=== PATIENT | female | born 1995 | race Caucasian/White ===

== ENCOUNTER 2016-12-25 11:31 | Emergency (ER) | payer SELFPAY ==
[~2016-12-25] VITALS: Ht 167.6 cm; Wt 74.4 kg
[~2016-12-25 11:31] MED LIST: BACTRIM DS 8001 TA1 PO; BENTYL10 MG PO; BIRTH CONTROL1 EAC1 PO; CEFUROXIME AXE250 MG PO; DEPO PROVER150 MG/M1 IM; FLONASE ALLERG9.9 ML NAS; KEFLEX500 MG PO; KENALOG0.1% TP; MACROBID100 M1 PO; MIRALAX POWDER17 G1 PO; MUCINEX DM 60 M1 TER PO; PHENERGAN W/DM120 ML PO; PREDNICOT10 MG PO; PROAIR HFA0.09 MG/AC INH; PROVENTIL0.09 MG/A1 INH; PYRIDIUM100 MG PO; PYRIDIUM200 MG PO; VIBRAMYCIN100 MG PO; ZANTAC 150150 MG PO; ZOFRAN ODT4 MG SL
[2016-12-25 12:04] LABS: BASO # 0.1 10*3/uL (0.0-0.1); BASO % 0.8 % (0.0-1.0); EOS # 0.1 10*3/uL (0.0-0.4); EOS % 1.3 % (1.0-4.0); HEMATOCRIT 40.6 % (37.0-47.0); HEMOGLOBIN 13.8 g/dl (12.0-16.0); LYMPH # 2.1 10*3/uL (1.3-4.4); LYMPH % 27.8 % (27.0-41.0); MEAN CELL VOLUME 89.6 fl (81.0-99.0); MEAN CORPUSCULAR HGB 30.5 pg (27.0-31.0); MONO # 0.4 10*3/uL (0.1-1.0); MONO % 5.2 % (3.0-9.0); NEUT # 4.8 10*3/uL (2.3-7.9); NEUT % 64.6 % (47.0-73.0); PLATELET COUNT AUTOMATED 195 10*3/uL (130-400); RED BLOOD COUNT 4.53 10*6/uL (4.10-5.10); WHITE BLOOD COUNT 7.5 10*3/uL (4.8-10.8)
[2016-12-25 12:14] LABS: PROTHROMBIN TIME 10.4 SECONDS (9.0-12.4)
[2016-12-25 12:21] LABS: ALBUMIN 3.6 gm/dl (3.1-4.5); ALKALINE PHOSPHATASE 52 U/L (45-117); BILIRUBIN, TOTAL 1.3 mg/dl (0.2-1.0); BUN 15 mg/dl (7-24); CARBON DIOXIDE 24 mmol/L (21-32); CHLORIDE 109 mmol/L (98-107); CPK 38 U/L (26-192); EST GLOM FILT AFRICAN AMERICAN > 60 ml/min; GLUCOSE 84 mg/dL (65-99); MAGNESIUM 2.2 mg/dL (1.5-2.1); SGOT/AST 21 IU/L (3-35); SGPT/ALT 47 U/L (12-78); SODIUM 141 mmol/L (136-145); TOTAL PROTEIN 7.2 gm/dL (6.4-8.2)
[2016-12-25 12:22] LABS: C-REACTIVE PROTEIN < 0.29 MG/DL (0-0.3); CKMB < 0.5 ng/ml (0.5-3.6); TROPONIN I < 0.015 ng/ml (<0.045)
[2016-12-25 13:21] LABS: BILIRUBIN NEGATIVE (NEGATIVE); BLOOD 1+ (NEGATIVE); CLARITY CLOUDY (CLEAR); COLOR YELLOW (YELLOW); GLUCOSE NEGATIVE (NEGATIVE); KETONE NEGATIVE (NEGATIVE); LEUKO ESTERASE 3+ (NEGATIVE); NITRITE NEGATIVE (NEGATIVE); PROTEIN TRACE (NEGATIVE); UROBILINOGEN 0.2 E.U./dl (0.2-1.0)
[2016-12-25 13:40] LABS: URINE AMPHETAMINES < 1000 (1000ng/ml); URINE BARBITURATES < 200 (200ng/ml); URINE COCAINE < 300 (300ng/ml)
[2016-12-25 13:48] LABS: BACTERIA 3+; URINE REFLEX COMMENT YES (NO); WBC TNTC wbc/hpf (0-5)
== END 2016-12-26 08:37 | disposition home health service (06) ==
LOC: ED 11:31
PROVIDERS: Emergency Medicine; Physician Assistant
DX: S30.860A Insect bite (nonvenomous) of lower back and pelvis, initial encounter (principal); R45.851 Suicidal ideations; N30.01 Acute cystitis with hematuria; F32.9 Major depressive disorder, single episode, unspecified; F41.9 Anxiety disorder, unspecified; Z88.1 Allergy status to other antibiotic agents; Z88.2 Allergy status to sulfonamides; W57.XXXA Bitten or stung by nonvenomous insect and other nonvenomous arthropods, initial encounter; Y93.89 Activity, other specified; Y92.9 Unspecified place or not applicable; Y99.9 Unspecified external cause status

== ENCOUNTER 2017-04-14 18:45 | Emergency (ER) | payer SELFPAY ==
[~2017-04-14] VITALS: Ht 170.1 cm; Wt 77.6 kg
== END 2017-04-14 20:36 | disposition home or self-care (01) ==
LOC: ED 18:45
DX: B07.0 Plantar wart (principal); F17.200 Nicotine dependence, unspecified, uncomplicated; Z88.1 Allergy status to other antibiotic agents; Z88.2 Allergy status to sulfonamides

== ENCOUNTER → 2017-05-21 | Outpatient (CLI) | payer SELFPAY | END | disposition home or self-care (01) | LOC: RESCLI 01:23 | DX: Z11.1 Encounter for screening for respiratory tuberculosis (principal); F32.9 Major depressive disorder, single episode, unspecified; F43.10 Post-traumatic stress disorder, unspecified; Z72.0 Tobacco use; Z71.6 Tobacco abuse counseling ==

== ENCOUNTER → 2017-06-16 | Outpatient (CLI) | payer SELFPAY | END | disposition home or self-care (01) | LOC: RESCLI 03:38 | DX: F32.9 Major depressive disorder, single episode, unspecified (principal); F43.10 Post-traumatic stress disorder, unspecified; Z72.0 Tobacco use; Z71.6 Tobacco abuse counseling; Z88.1 Allergy status to other antibiotic agents; Z88.2 Allergy status to sulfonamides ==

== ENCOUNTER 2017-06-22 12:49 | Emergency (ER) | payer SELFPAY | END 2017-06-22 13:17 | disposition home or self-care (01) | LOC: ED 12:49 | DX: M26.621 Arthralgia of right temporomandibular joint (principal); F17.200 Nicotine dependence, unspecified, uncomplicated; Z88.1 Allergy status to other antibiotic agents; Z88.8 Allergy status to other drugs, medicaments and biological substances ==

== ENCOUNTER → 2017-07-16 | Outpatient (CLI) | payer SELFPAY | END | disposition home or self-care (01) | LOC: RESCLI 07-10 08:45 | DX: F32.9 Major depressive disorder, single episode, unspecified (principal); J06.9 Acute upper respiratory infection, unspecified; F43.10 Post-traumatic stress disorder, unspecified ==

== ENCOUNTER 2017-09-28 18:43 | Emergency (ER) | payer MEDICAID ==
[~2017-09-28] VITALS: Ht 170.1 cm; Wt 76.7 kg
[2017-09-28] MEDS ORDERED: CYCLOBENZAPRINE10 MG PO (20:23)
[2017-09-28] MEDS ORDERED: NAPROSYN500 MG PO (20:23)
[2017-09-28] MEDS ORDERED: MEDROL DOSEPAK4 MG PO (20:23)
== END 2017-09-28 20:45 | disposition home or self-care (01) ==
LOC: ED 18:43
DX: S29.011A Strain of muscle and tendon of front wall of thorax, initial encounter (principal); Z88.1 Allergy status to other antibiotic agents; X50.1XXA Overexertion from prolonged static or awkward postures, initial encounter; Y93.89 Activity, other specified; Y92.69 Other specified industrial and construction area as the place of occurrence of the external cause; Y99.9 Unspecified external cause status

== ENCOUNTER 2018-02-17 12:37 | Emergency (ER) | payer MEDICAID ==
[~2018-02-17] VITALS: Ht 170.1 cm; Wt 77.1 kg
[~2018-02-17 12:37] MED LIST changes: +CYCLOBENZAPRINE10 MG PO; +MEDROL DOSEPAK4 MG PO; +NAPROSYN500 MG PO
[2018-02-17] MEDS ORDERED: TESSALON PERLE100 M1 PO (14:48)
[2018-02-17] MEDS ORDERED: ZITHROMAX250 MG PO (14:48)
[2018-02-17] MEDS ORDERED: PREDNISONE20 M1 PO (14:48)
[2018-02-17] MEDS ORDERED: PROVENTIL HFA6.7 GM INH (14:48)
== END 2018-02-17 14:58 | disposition home or self-care (01) ==
LOC: ED 12:37
DX: J40 Bronchitis, not specified as acute or chronic (principal); J02.9 Acute pharyngitis, unspecified; F17.200 Nicotine dependence, unspecified, uncomplicated; Z88.1 Allergy status to other antibiotic agents

== ENCOUNTER 2018-03-23 16:25 | Emergency (ER) | payer OTHER ==
[~2018-03-23] VITALS: Ht 170.1 cm; Wt 81.6 kg
[~2018-03-23 16:25] MED LIST changes: +PREDNISONE20 M1 PO; +PROVENTIL HFA6.7 GM INH; +TESSALON PERLE100 M1 PO; +ZITHROMAX250 MG PO
[2018-03-23 17:56] LABS: BILIRUBIN NEGATIVE (NEGATIVE); BLOOD 3+ (NEGATIVE); CLARITY CLEAR (CLEAR); COLOR YELLOW (YELLOW); GLUCOSE NEGATIVE (NEGATIVE); KETONE NEGATIVE (NEGATIVE); LEUKO ESTERASE NEGATIVE (NEGATIVE); NITRITE NEGATIVE (NEGATIVE); SPECIFIC GRAVITY <= 1.005 (1.005-1.030); UROBILINOGEN 0.2 E.U./dl (0.2-1.0)
[2018-03-23 18:05] LABS: BACTERIA 2+; WBC 0-2 wbc/hpf (0-5)
[2018-03-23] MEDS ORDERED: Motrin,Rufen800 MG PO (18:45)
== END 2018-03-23 18:53 | disposition home or self-care (01) ==
LOC: ED 16:25
PROVIDERS: Nurse Practitioner
DX: N93.9 Abnormal uterine and vaginal bleeding, unspecified (principal); N92.6 Irregular menstruation, unspecified; F17.200 Nicotine dependence, unspecified, uncomplicated; Z88.1 Allergy status to other antibiotic agents

== ENCOUNTER → 2018-06-09 | Outpatient (CLI) | payer OTHER ==
[~2018-06-09] MED LIST changes: +Motrin,Rufen800 MG PO
== END | disposition home or self-care (01) ==
LOC: RESCLI 01:44
DX: Z11.1 Encounter for screening for respiratory tuberculosis (principal); F43.10 Post-traumatic stress disorder, unspecified; F32.9 Major depressive disorder, single episode, unspecified; F17.200 Nicotine dependence, unspecified, uncomplicated; Z71.6 Tobacco abuse counseling; Z88.2 Allergy status to sulfonamides

== ENCOUNTER 2018-09-14 07:58 | Emergency (ER) | payer OTHER ==
[~2018-09-14] VITALS: Ht 170.1 cm; Wt 78.0 kg
== END 2018-09-14 09:20 | disposition home or self-care (01) ==
LOC: ED 07:58
DX: O99.511 Diseases of the respiratory system complicating pregnancy, first trimester (principal); J02.8 Acute pharyngitis due to other specified organisms; B97.89 Other viral agents as the cause of diseases classified elsewhere; O26.891 Other specified pregnancy related conditions, first trimester; H92.09 Otalgia, unspecified ear; O99.331 Smoking (tobacco) complicating pregnancy, first trimester; Z3A.01 Less than 8 weeks gestation of pregnancy; Z88.2 Allergy status to sulfonamides; Z88.1 Allergy status to other antibiotic agents; Z79.899 Other long term (current) drug therapy

== ENCOUNTER → 2019-01-06 | Outpatient (CLI) | payer OTHER | END | disposition home or self-care (01) | LOC: US 12:30 | DX: O09.293 Supervision of pregnancy with other poor reproductive or obstetric history, third trimester (principal); Z3A.37 37 weeks gestation of pregnancy ==

== ENCOUNTER 2019-12-09 22:29 | Emergency (ER) | payer OTHER ==
[~2019-12-09] VITALS: Ht 167.6 cm; Wt 86.2 kg
[2019-12-09 22:57] LABS: COLOR YELLOW (YELLOW)
[2019-12-09 22:58] LABS: BILIRUBIN NEGATIVE (NEGATIVE); BLOOD 3+ (NEGATIVE); CLARITY SL CLOUDY (CLEAR); GLUCOSE NEGATIVE (NEGATIVE); KETONE NEGATIVE (NEGATIVE); LEUKO ESTERASE 3+ (NEGATIVE); NITRITE POSITIVE (NEGATIVE); PH 6.5 (5.0-9.0); SPECIFIC GRAVITY 1.025 (1.005-1.030)
[2019-12-09 23:10] LABS: RBC 51-100 rbc/hpf (0-2); WBC TNTC wbc/hpf (0-5)
[2019-12-09 23:11] LABS: BACTERIA 2+
[2019-12-09] MEDS ORDERED: MACROBID100 M1 PO (23:23)
== END 2019-12-09 23:48 | disposition home or self-care (01) ==
LOC: ED 22:29
PROVIDERS: Physician Assistant
DX: N39.0 Urinary tract infection, site not specified (principal); Z88.2 Allergy status to sulfonamides; Z88.1 Allergy status to other antibiotic agents; Z88.8 Allergy status to other drugs, medicaments and biological substances

== ENCOUNTER 2021-01-10 09:28 | Emergency (ER) | payer OTHER ==
[~2021-01-10] VITALS: Wt 88.5 kg
== END 2021-01-10 18:52 | disposition home or self-care (01) ==
LOC: ED 09:28
DX: S70.362A Insect bite (nonvenomous), left thigh, initial encounter (principal); F17.200 Nicotine dependence, unspecified, uncomplicated; Z88.2 Allergy status to sulfonamides; Z88.1 Allergy status to other antibiotic agents; Z79.2 Long term (current) use of antibiotics; Z79.899 Other long term (current) drug therapy; W57.XXXA Bitten or stung by nonvenomous insect and other nonvenomous arthropods, initial encounter; Y93.89 Activity, other specified; Y92.89 Other specified places as the place of occurrence of the external cause; Y99.8 Other external cause status

== ENCOUNTER 2021-05-05 15:04 | Emergency (ER) | payer OTHER ==
[~2021-05-05] VITALS: Wt 90.7 kg
[2021-05-05] MEDS ORDERED: PREDNISONE20 M1 PO (15:26)
[2021-05-05] MEDS ORDERED: AUGMENTIN 875-875 MG PO (15:26)
[2021-05-05] MEDS ORDERED: BENZONATATE100 M1 PO (15:26)
== END 2021-05-05 15:22 | disposition home or self-care (01) ==
LOC: ED 15:04
DX: J32.9 Chronic sinusitis, unspecified (principal); J02.9 Acute pharyngitis, unspecified

== ENCOUNTER 2023-08-25 11:14 | Emergency (ER) | payer SELFPAY ==
[~2023-08-25] VITALS: Ht 170.1 cm; Wt 74.8 kg
[~2023-08-25 11:14] MED LIST changes: +AUGMENTIN 875-875 MG PO; +BENZONATATE100 M1 PO
== END 2023-08-25 13:16 | disposition home or self-care (01) ==
LOC: ED 11:14
DX: O26.899 Other specified pregnancy related conditions, unspecified trimester (principal); R10.9 Unspecified abdominal pain; R10.2 Pelvic and perineal pain; Z88.2 Allergy status to sulfonamides; Z88.1 Allergy status to other antibiotic agents; Z88.8 Allergy status to other drugs, medicaments and biological substances; Z3A.00 Weeks of gestation of pregnancy not specified

== ENCOUNTER 2023-10-07 05:47 | Emergency (ER) | payer MEDICAID ==
[~2023-10-07] VITALS: Ht 177.8 cm; Wt 86.2 kg
[2023-10-07] MEDS ORDERED: AMOXICILLIN500 M2 PO (06:40)
[2023-10-07] MEDS ORDERED: AMOXICILLIN 500 MG CAP PO ONE (06:40)
== END 2023-10-07 06:44 | disposition home or self-care (01) ==
LOC: ED 05:47
DX: K02.9 Dental caries, unspecified (principal); Z88.2 Allergy status to sulfonamides; Z88.1 Allergy status to other antibiotic agents; Z88.8 Allergy status to other drugs, medicaments and biological substances; Z79.2 Long term (current) use of antibiotics; Z79.899 Other long term (current) drug therapy